=== PATIENT | female | born 1995 | race Caucasian/White ===

== ENCOUNTER 2018-05-02 18:05 | Emergency (ER) | payer OTHER ==
[~2018-05-02] VITALS: Ht 160 cm; Wt 49.9 kg
[~2018-05-02 18:05] MED LIST: INTESTINEX680 MG PO; ZANTAC150 MG PO
== END 2018-05-02 21:44 | disposition home or self-care (01) ==
LOC: ER 18:05
DX: K29.70 Gastritis, unspecified, without bleeding (principal); R11.11 Vomiting without nausea